=== PATIENT | male | born 1965 | race Caucasian/White ===

== ENCOUNTER → 2018-02-08 19:35 | Outpatient (CLI) | payer BC, SELFPAY ==
--- NOTE | 2018-02-08 19:48 | XR_ITS ---
XR cervical spine 5V Ordering Physician: Maureen Mac Patient Age: 52 years: Male HISTORY: ITS.REASON: RIGHT SHOULDER PAIN Right shoulder pain since August TECHNIQUE: Five-view cervical spine series COMPARISON :None FINDINGS Degenerative disc space narrowing, cervical spondylosis most evident C4 through C6. C3/4. Generous Facet hypertrophy on the right C4/5. Marked Disc space narrowing. Posterior hypertrophic ridging with near 2.5mm retro- listhesis of C4 on 5 vertebra also evident. Mild bilateral foraminal encroachment C5-C6 marked disc space narrowing. Just over 2 mm retrolisthesis C5 on C6 Cervical spondylosis/Posterior hypertrophic ridging with moderate bilateral foraminal encroachment. Moderate anterior marginal osteophytes C5/6 and C4/5 C6/7: Mild disc space narrowing. Mild posterior hypertrophic ridging. Mild foraminal encroachment. . C1-C2 relationships appear normal density intact. Nonspecific straightening prevertebral soft tissues normal Apices the lungs are clear IMPRESSION: ------ 1. Moderately pronounced Degenerative changes cervical spine . Degenerative disc space narrowing & cervical spondylosis most evident at C 4/5 & C5/6. Posterior hypertrophic ridging with Slight retrolisthesis at each of these levels.. C5-C6.: Bilateral foraminal encroachment most evident towards right foramen. C4/5: mild bilateral foraminal encroachment. Also moderate-generous facet hypertrophy the right C3/4
--- NOTE | 2018-02-08 19:48 | XR_ITS ---
XR shoulder RT min 2V Ordering Physician: Maureen Mac Patient Age: 52 years: Male HISTORY: ITS.REASON: RIGHT SHOULDER PAIN Right shoulder pain since August no injury TECHNIQUE: 3 view right shoulder COMPARISON :None FINDINGS Glenohumeral joint intact. Normal relationships. Humeral head and neck intact. Perhaps Scant sclerosis with subtle small degenerative cystic feature seen at the superior base of the humeral head. AC joint is intact. . Scapula unremarkable. IMPRESSION: ............... Right shoulder intact.
== END ==
PROVIDERS: Visit Provider Nurse Practitioner
DX: M25.511 Pain in right shoulder (principal)
CPT/HCPCS: 72050; 73030

== ENCOUNTER → 2018-02-15 15:48 | Outpatient (CLI) | payer BC, SELFPAY ==
--- NOTE | 2018-02-15 15:52 | MR_ITS ---
MR li con HISTORY: Generalized neck pain ITS.REASON: DDD CERVICAL, RADICULAR PAIN OF RIGHT UPPER EXTREMITY ORDERING PHYSICIAN: Caitlyn Lockett MD PATIENT AGE: 53 years Comparison: Plain film cervical spine 02/08/2018 12 TECHNIQUE: Standard multiplanar multiecho sequences are performed without contrast. 3-D MIP and myelographic images are also rendered and reviewed FINDINGS: There is normal curvature and alignment. The marrow signal is normal in each lumbar vertebrae. There is disc space narrowing at the C4-5, C5-6 and C6-7 levels. There is moderate anterior osteophytic spurring at the C4-5 and C5-6 levels. The spinal canal is normal in size throughout. There is a small broad-based disc protrusion at the C3-4 level causing minimal effacement of the CSF but not contacting the cervical cord. There is a larger broad-based disc protrusion C4-5 which effaces the CSF and mildly contours the cervical cord. There is bilateral neural foraminal narrowing at this level more prominent right side than left. There is a similar broad-based disc protrusion C5-6 which effaces the CSF and abuts but does not contour the cervical cord. There is bilateral neural foraminal narrowing at this level. There is a small broad-based disc protrusion C6-7 which only minimally effaces the CSF and does not contact the cord. The myelogram sequence is unremarkable. IMPRESSION: Multilevel disc protrusion most prominent at the C4-5 level where there is contouring of the cervical cord and bilateral neural foraminal narrowing but more prominent right side than left
== END ==
PROVIDERS: Family Provider Family Medicine; PCP Family Medicine; Visit Provider Family Medicine
DX: M50.30 Other cervical disc degeneration, unspecified cervical region (principal); M79.2 Neuralgia and neuritis, unspecified
CPT/HCPCS: 72141; 76376

== ENCOUNTER → 2018-03-14 12:44 | Outpatient (POV) | payer BC, SELFPAY | PROVIDERS: Family Provider Family Medicine; PCP Family Medicine; Visit Provider Neurological Surgery | DX: Z00.00 Encounter for general adult medical examination without abnormal findings (principal) ==

== ENCOUNTER → 2020-08-04 09:29 | Outpatient (CLI) | payer BC, SELFPAY ==
--- NOTE | 2020-08-04 09:34 | XR_ITS ---
PROCEDURE: XR SHOULDER RT MIN 2V CLINICAL INDICATION: RT SHOULDER PAIN COMPARISON: CR SHOULDCMRT XR shoulder RT min 2V from 02/08/2018 FINDINGS: No fracture or dislocation. No lytic or blastic change. There is normal mineralization. There are minimal osteoarthritic changes of the glenohumeral joint Other findings:None. IMPRESSION: Mild osteoarthritis of the glenohumeral joint Dictated by: Ye Shannon MD 08/04/2020 18:34 Ye Shannon MD in [facility] 08/04/2020 18:34
--- NOTE | 2020-08-04 09:34 | XR_ITS ---
PROCEDURE: XR CERVICAL SPINE 5V CLINICAL INDICATION: RT SHOULDER PAIN Chronic neck pain COMPARISON: CR [id number] XR cervical spine 5V from 02/08/2018 FINDINGS: No fracture or dislocation. No lytic or blastic change. There is normal mineralization. 2 mm anterolisthesis of C3 on C4. There is degenerative disc disease at C4-C5 C5-C6 and C6-C7 with endplate osteophytes at C4-C5 and C6 and C7. Foraminal narrowing is present on the left at C4-C5 C5-C6 and C6-C7 and on the right at C3-C4. The degenerative disc disease has somewhat progressed compared to 02/08/2018 IMPRESSION: Cervical spondylosis which has progressed from the previous exam Dictated by: Ye Shannon MD 08/04/2020 18:37 Ye Shannon MD in [facility] 08/04/2020 18:37
== END ==
PROVIDERS: PCP Nurse Practitioner; Visit Provider Nurse Practitioner
DX: M54.2 Cervicalgia (principal); M25.511 Pain in right shoulder
CPT/HCPCS: 72050; 73030

== ENCOUNTER 2020-08-13 07:52 | Emergency (ER) | payer OTHER, SELFPAY ==
[2020-08-13 07:53] VITALS: BP 132/73; PULSE 55; RESP 20; TEMP 36.8; O2SAT 98; BMI 27.8
--- NOTE | 2020-08-13 08:30 | [facility].EDWNDL ---
ED Disposition Clinical Impression: Laceration Disposition: Home, Self-Care Condition on Discharge: Good Instructions: DI for Laceration Repair Additional Instructions: Keep wound clean and dry. Keep covered for 3 days. Do not get wet for 3 days. After 3 days, lasting wet and first thing dry. No submerging for 2 weeks. Stitches out in 5 to 7 days. Return to the emergency department or PCP office if you notice thick drainage, redness to your hand, pain with movement of your fingers. Referrals: Cody Womack MD [Primary Care Provider] - - Critical Care Critical Care Time: No Attestation: On 08/13/20, the high probability of a clinically significant, sudden or life threatening deterioration of the following system(s) required my full and direct attention, intervention and personal management. The time I documented below is in addition to time spent performing reported procedures but includes the following listed in this critical care notation. Medical Decision Making - Portillo Inquiry Pt receiving controlled substance: No Portillo was queried for this patient: No Vital Signs: 08/13/20 07:53 Temperature 98.2 F Temperature Source Oral Pulse Rate [Left Radial] 55 L Respiratory Rate 20 Blood Pressure [Right Arm] 132/73 Blood Pressure Mean [Right Arm] 92 Blood Pressure Source [Right Arm] Automatic Cuff Blood Pressure Position [Right Arm] Sitting 02 Sat by Pulse Oximetry 98 Oxygen Delivery Method Room Air Orders (Tests/Meds): ED MEDICATIONS Discontinued Medications Generic Name Dose Route Start Last Admin Trade Name Freq PRN Reason Stop Dose Admin Tetanus/Reduced Diphtheria/Acell Pertussis 0.5 ml 08/13/20 08:24 08/13/20 08:40 Tet/Diphth/Pert-Adult 0.5ml Syringe IM 08/13/20 08:25 0.5 ml .ONCE ONE Administration Medical Decision Narrative: 55yo M evaluated for laceration to his dominant hand. Wound was cleaned with Hibiclens. Irrigated with normal saline. See procedure note for further details of repair. Patient tolerated procedure well. Started on Bactrim prophylactically. Tetanus shot updated in the emergency department. Counseled on wound management, when it was okay to shower, timeline for suture removal, parameters to return to the emergency department or PCP office. Patient voiced understanding and agreement with plan. Stable and appropriate for discharge home at this time. Wound/Laceration HPI - General Chief Complaint: Wound/Laceration Stated Complaint: rt hand lac, wc Time Seen by Provider: 08/13/20 08:30 Mode of Arrival: Ambulatory Limitations: No Limitations Description of Symptoms (Recalled from ER Triage Doc. by RN): c/o hand laceration. Pt states he was at work when a door came back and hit his hand. - History of Present Illness HPI narrative: 55yo M presents to the emergency department secondary to laceration to the right hand. Patient is right-hand dominant. Laceration is on the posterior aspect of the hand between the thumb and forefinger. Patient denies significant pain. Unknown last tetanus shot. Reports normal movement and sensation to the right hand. Injury occurred immediately prior to report to the emergency department. Place: home Patient tetanus UTD: No Context: accidental Associated symptoms: none - Related Data Allergies Allergy/AdvReac Type Severity Reaction Status Date / Time No Known Allergies Allergy Verified 08/13/20 08:24 [facility] History - Hepatitis A Screen Drug use history?: No High risk sexual behaviors?: No History of sexually transmitted infection?: No Currently employed?: No Childcare worker?: No Do you have indoor plumbing?: Yes Do you have electricity?: Yes Attestation statement:: This patient has been screened for Hepatitis A risk factors. I have reviewed the patient's past medical history: Yes Amputation: No - Social History Tobacco Type: cigarettes, e-cigarettes Family Hx:: No significant family his
[2020-08-13 09:08] VITALS: BP 117/80; PULSE 52; RESP 52; TEMP 36.8; O2SAT 98
== END 2020-08-13 09:27 | disposition home or self-care (01) ==
PROVIDERS: Emergency Provider Emergency Medicine; PCP Family Medicine
DX: S61.411A Laceration without foreign body of right hand, initial encounter (principal); W45.8XXA Other foreign body or object entering through skin, initial encounter; Y92.69 Other specified industrial and construction area as the place of occurrence of the external cause; Y99.0 Civilian activity done for income or pay; Z23 Encounter for immunization
CPT/HCPCS: 12001; 90715; 99282

== ENCOUNTER 2020-09-03 14:00 | Outpatient (RCR) | payer BC, SELFPAY | END 2020-09-03 14:05 | disposition home or self-care (01) | LOC: PT 14:00 | PROVIDERS: PCP Family Medicine; Visit Provider Nurse Practitioner | DX: M54.2 Cervicalgia; M25.511 Pain in right shoulder | CPT/HCPCS: 97010; 97014; 97033; 97035; 97110; 97140; 97163; G0283 ==

== ENCOUNTER → 2020-12-31 10:07 | Outpatient (CLI) | payer BC, SELFPAY ==
--- NOTE | 2020-12-31 10:09 | US_ITS ---
APPROVED REPORT Exam Type: Ankle to Brachial Index Parachute Crown Sewer: RT Jaime(R) Indications Claudication: Bilaterally Rest Pain: Bilaterally Current Smoker Bilateral claudication Risk Factors Current Smoker Findings RT MOISE=1.04 LT MOSIE=1.09 RT TBI=0.68 LT TBI=0.73 Normal pulses bilaterally Normal waveforms bilaterally Conclusion RT MOISE=1.04 LT MOISE=1.09 RT TBI=0.68 LT TBI=0.73 Normal pulses bilaterally Normal waveforms bilaterally Normal appearing resting noninvasive lower extremity arterial study. Electronically signed by : Ye Shannon MD 12/31/2020 16:24:25
== END ==
PROVIDERS: PCP Family Medicine; Visit Provider Family Medicine
DX: I70.213 Atherosclerosis of native arteries of extremities with intermittent claudication, bilateral legs (principal)
CPT/HCPCS: 93923

== ENCOUNTER → 2022-04-10 11:19 | Outpatient (CLI) | payer BC, SELFPAY ==
--- NOTE | 2022-04-10 11:38 | ECG_ITS ---
APPROVED REPORT Exam: Resting ECG HR:53 bpm ECG Measurements Heart Rate 53 AXES ID 158 P 71 QRSd 106 QRS 53 QT 413 T 49 QTc 395 Conclusion SINUS BRADYCARDIA BORDERLINE ECG UNCONFIRMED REPORT Electronically signed by : Lex Neumann MD 04/10/2022 22:34:28
[2022-04-10 19:20] LABS: Basophils # 0.1 K/mm3 (0-0.2); Basophils % 1.3 % (0.1-2.0); Eosinophils # 0.4 K/mm3 (0.0-0.4); Eosinophils % 4.4 % (0.1-12.0); Hematocrit 49.1 % (42.0-52.0); Hemoglobin 15.3 g/dL (14.1-18.0); Lymphocytes # 1.8 K/mm3 (0.7-4.5); Mean Corpuscular HGB Conc 31.2 g/dL (31.8-35.4); Mean Corpuscular Hemoglobin 29.9 pg (27.0-31.2); Mean Corpuscular Volume 95.9 fl (80-94); Mean Platelet Volume 9.9 fl (7.4-10.4); Monocytes # 0.6 K/mm3 (0.1-1.0); Monocytes % 6.6 % (1.7-9.3); Neutrophils # 5.5 K/mm3 (1.8-7.8); Neutrophils % 65.8 % (37.0-80.0); Platelet Count 397 K/mm3 (142-424); Red Blood Count 5.12 M/mm3 (4.60-6.20); Red Cell Distribution Width 13.5 % (11.5-17.5); White Blood Count 8.4 K/mm3 (4.8-10.8)
[2022-04-10 20:29] LABS: Anion Gap 14.5 mEq/L (5-15); Blood Urea Nitrogen 23 mg/dl (9-20); Calcium 9.1 mg/dl (8.4-10.2); Carbon Dioxide 25 mmol/L (22.0-30.0); Chloride 104 mmol/L (98-107); Estimated Glomerular Filt Rate 99 ml/min (>60); GFR (African American) 120 ML/MIN (>60); Glucose 95 mg/dl (74-100); Potassium 4.5 mmoL/L (3.5-5.1); Sodium 139 mmol/L (136-145)
== END ==
PROVIDERS: PCP Nurse Practitioner; Visit Provider Nurse Practitioner
DX: Z01.818 Encounter for other preprocedural examination (principal)
CPT/HCPCS: 80048; 85025; 93005

== ENCOUNTER 2024-11-12 18:48 | Outpatient (CLI) | payer BC, SELFPAY ==
--- OUTSIDE RECORDS SUMMARY | 2024-11-12 18:50 | XMS_ITS | Data Portability ---
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 Plan of Treatment Reminders Order Date Submit Date Provider Last Modified By Organization Details Last Modified Time Details Appointments None recorded. Lab None recorded. Referral None recorded. Procedures None recorded. Surgeries None recorded. Imaging XR, knee, 4 or more view [facility] [place], [address] , [place], [address], 7 16:20:44 XR, hip, unilatera l, 2 or 3 view [facility] [place], [address] , [place], [address], 7 16:20:24 Medication Orders Medrol (Adama) 4 mg tablets in a dose pack [facility], [address] [place], [address], 8 15:25:01 Patient TargetsNo targets recorded. Patient Instructions Encounter Date Encounter Id Patient Instructions Last Modified By Organization Details Last Modified Time 03/07/2017 [id number] patellar tendinitis (jumper's knee): exercises ddome Not available 03/07/2017 09:50:49 work status report* slaha Not available 03/07/2017 11:25:24 06/04/2017 [id number] knee arthritis: care instructions KAILA Not available 06/05/2017 15:18:09 hip arthritis: care instructions KAILA Not available 06/05/2017 15:17:19 osteoarthritis: care instructions KAILA Not available 06/05/2017 15:17:19 12/19/2017 [id number] knee arthritis: care instructions ddome Not available 12/20/2017 07:40:38 11/13/2018 [id number] knee arthritis: care instructions ddome Not available 11/18/2018 10:45:54 07/09/2019 [id number] knee arthritis: care instructions ddome Not available 07/09/2019 15:02:41 Reason for Referral None Reported. Results Created Date Observation Date Name Description Value Unit Range Abnormal Flag Note LastModifiedBy Organization Detail LastModifiedTime 06/04/20 17 06/04/2017 XR, hip, unila teral , 2 or 3 view Amirah pratt [facility] [address] [place] [address] Monica soto Name: TSEF soto : [phone] Monica soto 44 Orderi ng Provid er: OLGA VALDEZ EXAM DATE: 2016 EXAM: XR RT HIP UNILAT ERAL, 2 OR 3 VWS COMPAR JULISSA: None. HISTOR Y: Right hip pain FINDIN GS: The alignm ent is normal . Mild degene rative spurri ng involv ing the hips bilate rally. No fractu re or disloc ation. No intrao sseous lesion IMPRES PABLO: Mild bilate ral hip DJD Interp reted By: Jabari Leach MD Electr onical ly Signed By: Jabari Leach MD on 017 4:15 PM ddome [facility] [place] [address] , [place], [address], 06/04/2017 17:08:08 06/04/20 17 06/04/2017 [facility]R, knee, [facility] [place] [address] [place] [address] Monica soto Name: STEF soto : [phone] Monica soto 44 Orderi ng Provid er: OLGA VALDEZ EXAM DATE: 2016 EXAM: XR RT KNEE COMPLE TE, 4 OR MORE VWS COMPAR JULISSA: None. HISTOR Y: Right knee pain FINDIN GS: Normal alignm ent includ ing the patell ofemor al joint. Mild degene rative spurri ng bilate rally. No fractu re or intrao sseous lesion is noted. Contra latera l knee: Mild DJD IMPRES PABLO: 1. Mild bilate ral knee DJD, symmet charan Interp reted By: Jabari Leach MD Electr onical ly Signed By: Jabari Leach MD on 017 4:15 PM ddome [facility] [place] [address], [place], [address], 06/04/2017 17:08:08 Result Notes None recorded. Problems No Known Problems Procedures Surgical History Date Name Laterality Status Provider Name and Address Organization Details Recorded Time 9 Injection Joint/Bursa, Major completed OLGA VALDEZ MD [address] [place] [address], [phone], [facility] 07/09/2019 15:02:16 9 Injection Joint/Bursa, Major completed OLGA VALDEZ MD [address] [place] [address], [phone], [facility] 11/18/2018 10:45:10 8 Injection Joint/Bursa, Major completed OLGA VALDEZ MD [address] [place] [address] [place], [address], [facility] 12/19/2017 15:42:06 7 Euflexxa Injection completed OLGA VALDEZ MD [address] [place] [address] [place], [address], [facility] 01/25/2017 13:10:50 7 Euflexxa Injection completed OLGA VALDEZ MD [address] [place] [address] [place], [address], [facility] 01/17/2017 15:49:05 7 Euflexxa Injection completed OLGA VALDEZ MD [address] [place], [address], [facility] 01/10/2017 16:04:27 7 Injection Joint/Bursa, Major completed OLGA VALDEZ MD [address] [place] [address], [phone], [facility] 11/29/2016 11:27:14 7 Injection Joint/Bursa, Major, w/o US completed ROBBIE BUCIO MD [address] [place] [address], [phone], [facility] 09/05/2016 14:30:18 Imaging Results Imaging Date Name Status LastModified by Organiz ation Details LastModified Time 06/04/2017 XR, hip, unilateral , 2 or 3 view completed [facility] [place] [address] , [place], [address], 06/04/2017 17:08:08 06/04/2017 XR, knee, 4 or more view completed [facility] [place] [address] , [place], [address], 06/04/2017 17:08:08 Procedure Notes None recorded. Medical Equipment None Reported. Allergies No known drug allergies Medications Name Sig Start Date Stop Date Status Note LastModified by Organization Details LastModified Time prednisone 10 mg tablet Take 60 mg by oral route in the morning for 14 days. 06/04 completed Not Available Not Available Not Available Depo-Medrol 40 mg/mL suspension for injection Take 2 mL by injection route. 06/04 completed Not Available Not Available Not Available nabumetone 750 mg tablet Take 1 tablet twice a day by oral route. active Not Available Not Available No t Available benzonatate 200 mg capsule 09/05 completed Not Available Not Available Not Available Medrol (Adama) 4 mg tablets in a dose pack Take 1 dose pk by oral route. 12/19 completed Not Available Not Available Not Available paroxetine 30 mg tablet Take 1 tablet every day by oral route. 06/04 completed Not Available Not Available Not Available diclofenac sodium 75 mg tablet,jed yed release Take 1 tablet twice a day by oral route for 30 days. 06/04 completed Not Available Not Available Not Available etodolac 400 mg tablet 11/13 completed Not Available Not Available Not Available cefdinir 300 mg capsule 09/05 completed Not Available Not Available Not Available Ventolin HFA 90 mcg/actuati on aerosol inhaler 09/05 completed Not Available Not Available Not Available Vitals Date Recorded Body height Body mass index (BMI) Body weight Systolic blood pressure Diastolic blood pressure Provider Name and Address Organization Details Last Updated DateTime 03/07/2017 182.88 cm 27.8 kg/m2 60165.44 g 112 mm[Hg] 64 mm[Hg] [facility] 7 09:36:12 Date Recorded Body height Body mass index (BMI) Body weight Systolic blood pressure Diastolic blood pressure Provider Name and Address Organization Details Last Updated DateTime 06/04/2017 182.88 cm 28.2 kg/m2 24240.93 g 120 mm[Hg] 82 mm[Hg] Elsie Crowley [facility] 7 15:35:21 Date Recorded Pain severity - 0-10 verbal numeric rating [Score] - Reported Provider Name and Address Organization Details Last Updated DateTime 06/04/2017 6 Not Available [facility] 8 10:37:50 Date Recorded Body height Body mass index (BMI) Body weight Systolic blood pressure Diastolic blood pressure Provider Name and Address Organization Details Last Updated DateTime 12/19/2017 182.88 cm 28.2 kg/m2 94188.21 g 120 mm[Hg] 74 mm[Hg] [facility] 8 15:26:37 Date Recorded Body height Body mass index (BMI) Body weight Systolic blood pressure Diastolic blood pressure Provider Name and Address Organization Details Last Updated DateTime 11/13/2018 182.88 cm 28.2 kg/m2 01796.21 g 128 mm[Hg] 82 mm[Hg] [facility] 9 16:11:54 Date Recorded Body height Body mass index (BMI) Body weight Systolic blood pressure Diastolic blood pressure Provider Name and Address Organization Details Last Updated DateTime 07/09/2019 182.88 cm 28.5 kg/m2 11341.4 g 116 mm[Hg] 68 mm[Hg] Ephraim Estrada [facility] 9 14:35:31 Social History Question Answer Notes LastModified by Organizat ion Details LastModified Time Tobacco Smoking Status Current Every Day Smoker [email or web address] 09/05/2016 13:55:22 What Is Your Level Of Alcohol Consumption? Occasional [email or web address] Information not available 11/27/2016 What Is Your Level Of Caffeine Consumption? Moderate [email or web address] Information not available 06/04/2017 Rate The Severity Of Your Symptoms: (0-10 With 0=none And 10=worst Possible) 6 [email or web address] Information not available 06/04/2017 When Are Your Symptoms The Worst? Night Day Neither Day [email or web address] Information not available 06/04/2017 How Long Have You Had These Symptoms? Knee 07/14, Hip 1 Month [email or web address] Information not available 06/04/2017 Will This Be Filed As Workers' Compensation? No [email or web address] Information not available 06/04/2017 What Was The Date Of Your Most Recent Tobacco Screening? 11/13/2018 Information not available 09/16/2019 How Much Tobacco Do You Smoke? 1 PPD [email or web address] Information not available 09/05/2016 Work Related Injury? No [email or web address] Information not available 06/04/2017 Sex: Unknown Functional Status None recorded. Mental Status None recorded. Family History Relationship Description Onset Age of this Age Resolved Age Notes LastModified by Organization Details LastModified Time Father No current problems or disability [email or web address] Not available 09/05 13:55:14 Mother No current problems or disability [email or web address] Not available 09/05 13:55:14 Medical History Condition Response Coronary Artery Disease N Gout N Other N Anxiety/Depression N Thyroid Disease N Kidney Stones N Hernia N Emphysema N COPD N Glaucoma N Pneumonia N Anesthesia Complications N Gastrointestinal Disease N Arthritis Y Serious Illness or Injuries N Blood Clot N Acid Reflux (GERD) N Cancer N Stroke N Alcohol Overuse/Alcohol Abuse N High Cholesterol N Liver Disease N Rheumatoid Arthritis N Kidney Disease N Allergies/Hayfever N Chronic Obstructive Pulmonary Disease N Heart Conditions N Migraines N Skin Problems N Immune System Disorder N Heart Attack (MD) N Mental Illness N Neurological Problems N Diabetes N Anticoagulation therapy N Rheumatic Fever N Bleeding Disorder N Seizures/Epilepsy N Tuberculosis N Genetic Disorder N AIDS/HIV N Asthma N Peripheral Vascular Disease N Sleep Apnea N Included as Review of Systems N Heart Disease N Hypertension N Osteoporosis N Past Encounters Encounter ID Performer Location Encounter Start Date Encounter Closed Date Diagnosis/Indication Diagnosis SNOMED-CT Code Diagnosis ICD10 Code Diagnosis Note [id number] ROBBIE BUCIO MD [place] [address] [address] 09/05/2016 13:40:34 09/05/2016 14:38:25 Knee joint effusion 612951793 M25.461 Right knee, with underlying OA.Aspirat ed 8 ml of synovial fluid and fluid send for analysis .Injected with Depo medrol 80 mg. Rheumatoid factor detected 678481831 R76.0 seems likely a false positive test .no synovitis or dactylitis noted .right knee effusions eems more secondary to OA along with possible chronic degenerati ve medial meniscal tear.I have obtained an anti CCP abs along with ESR. [id number] ROBBIE BUCIO MD [facility]HEUMATOL [facility] [address] [address] 11/16/2016 13:36:15 11/16/2016 14:41:45 Knee joint effusion 515554637 M25.461 Right knee, recurrent .Aspirated 2 months ago , with features of DJD.Negati ve crystal exam.The swelling is back and limited ROM.Tender MJL with positive popliteal cyst.Needs MRI , likely meniscal tear with associated DJD .For now, take Prednisone at 60 mg poqd with taper over the next 14 days .see me on the day of MRI exam. [id number] ROBBIE BUCIO MD RHEUMATOL OG[address] [address] 11/27/2016 09:15:37 11/27/2016 10:37:27 Pain in right knee 4299590397 70803 M25.561 Recurrent effusion and pains with MRI examinatio n positive for tear of the mid portion of the medial meniscus with probable extension into the posterior horn. There is a tear along the free edge of the mid portion of the lateral meniscus. Plus a large joint effusion and mild degenerati ve changes in the right knee. I want him to have orthopedic evaluation for further management .He is finishing off the oral steroid pack. [id number] OLGA VALDEZ MD [facility] [place] [address] [place] [address] 11/29/2016 09:18:22 11/29/2016 11:35:27 Osteoarthritis of knee 510197734 M17.11 Mr Tee has early OA of the knee. His x rays appear relatively benign but his MRI shows much more advanced arthropath y of the kneeI recommend conservati ve treatment for the knee OA with PT corticoste roid injection and diclofenac If he has persistent pain despite these treatments it would be reasonable to perform viscosuppl ementation with euflexxaAr throscopic treatment of the knee OA would not likely be beneficial If he fails non operative treatment then he may need uni compartmen t arthroplas ty versus high tibial osteotomy [id number] OLGA VALDEZ MD [facility] [place] [address] [place] [address] 12/27/2016 14:33:19 12/27/2016 15:37:56 Osteoarthritis of knee 296383822 M17.11 Mr Tee has early OA of the knee. His x rays appear relatively benign but his MRI shows much more advanced arthropath y of the kneeI recommend conservati ve treatment for the knee OA with PT corticoste roid injection and continuati on of etodolac as the diclofenac cause gi distressHe has persistent pain despite these treatments and I recommend we preauthori ze viscosuppl ementation with euflexxaAr throscopic treatment of the knee OA would not likely be beneficial If he fails non operative treatment then he may need uni compartmen t arthroplas ty versus high tibial osteotomy [id number] OLGA VALDEZ MD [facility] [place] [address] [place] [address] 01/10/2017 15:27:43 01/11/2017 10:44:30 Osteoarthritis of knee 857595528 M17.11 Mr Tee has early OA of the knee. His x rays appear relatively benign but his MRI shows much more advanced arthropath y of the kneeI recommend conservati ve treatment for the knee with viscosuppl ementation with euflexxaHe was given the first of 3 injections right kneeIf he fails non operative treatment then he may need uni compartmen t arthroplas ty versus high tibial osteotomy [id number] OLGA VALDEZ MD [facility] [address] [place] [address] 01/17/2017 15:19:59 01/17/2017 16:21:37 Osteoarthritis of knee 392884601 M17.11 Mr Tee has early OA of the knee. His x rays appear relatively benign but his MRI shows much more advanced arthropath y of the kneeI recommend conservati ve treatment for the knee with viscosuppl ementation with euflexxaHe was given the second of 3 injections right kneeIf he fails non operative treatment then he may need uni compartmen t arthroplas ty versus high tibial osteotomy [id number] [facility] [address] [place] [address] 01/24/2017 15:26:43 01/25/2017 17:08:29 Osteoarthritis of knee [id number] M17.11 Mr Tee has early OA of the knee. His x rays appear relatively benign but his MRI shows much more advanced arthropath y of the kneeI recommend conservati ve treatment for the knee with viscosuppl ementation with euflexxaHe was given the second of 3 injections right kneeIf he fails non operative treatment then he may need uni compartmen t arthroplas ty versus high tibial osteotomy [id number] OLGA VALDEZ [facility] [address] [place] [address] 03/07/2017 08:46:37 03/07/2017 09:53:14 Patellar tendonitis [id number] M76.51 Acute patella tendinitis I recommend a brief course of immobiliza tion with knee immobilize r and off work for one weekI asked him to continue with the anti inflammato ry medication as well. [id number] [facility] [address] [place] [address] 06/04/2017 14:49:58 06/13/2017 07:35:04 Osteoarthritis of hip 250844121 M16.11 Mr Tee is now more symptomati c with the right hip than the kneeI recommend continuati on of hip abductor strengthen ing and a short course of Medrol to alleve his hip pain. Osteoarthr itis of knee 516633355 M17.11 Mr Tee has early OA of the knee. His x rays appear relatively benign but his MRI shows much more advanced arthropath y of the kneeHe had follow up xrays today which did not show advancing medial compartmen t erosion. [id number] OLGA VALDEZ MD [facility] [address] [place] [address] 12/19/2017 15:02:34 12/20/2017 08:58:18 Osteoarthritis of knee 829133554 M17.11 Mr Tee has early OA of the knee. He has had recent worsening symptoms due to increased weight bearing activities this spring. He was provided corticoste roid injection for symptomati c relief and I asked him to continue the Lodine.He had follow up xrays today which did not show advancing medial compartmen t erosion. [id number] [facility] [address] [address] 11/13/2018 15:57:01 11/19/2018 15:35:42 Osteoarthritis of knee 582437257 M17.11 Mr Tee has early OA of the knee. He has had recent worsening symptoms due to increased weight bearing activities this spring. He was provided corticoste roid injection of the left knee as described above for symptomati c relief and I asked him to continue the relafen. [id number] [facility] [address] [address] 07/09/2019 14:29:10 07/15/2019 12:16:59 Osteoarthritis of knee 153799471 M17.11 Mr Tee has early OA of the knee. He has had recent worsening symptoms. He was provided corticoste roid injection of the left knee as described above for symptomati c relief and I asked him to continue the relafen. Health Concerns Section Related Observation LastModified by Organization Detai ls LastModified Time None Recorded Concern Status LastModified by Organization Details LastModified Time None Recorded Advance Directives Directive None Recorded Payers Encounter Date Sequence Insurance Name Policy Number Policy Muse Covered Member ID Muse Member ID Guarantor Name 03/07/2017 1 [place] [id number] Caroline Tee [id number] Sandip Tee 06/04/2017 1 [place] [id number] Caroline Tee [id number] Sandip Tee 12/19/2017 1 [place] [id number] Caroline Tee [id number] Sandip Tee 11/13/2018 1 [place] [id number] Caroline Tee [id number] Sandip Tee 07/09/2019 1 [place] [id number] Caroline Tee [id number] Sandip Tee Notes Date Note Type Note Provider Name and Address Organization Details Recorded Time 7 text/html Mr Turner presents today for evaluation of painful left knee. He denies any specific cause for his current knee pain. He points to the anterior knee as the area of discomfort. He denies locking, catching, giving away, or significant swelling. He increased pain with increased weight bearing activities. He has pain with prolonged sitting and when standing from sitting. He has been taking Lodine 400 mg daily without adverse effect and this helps him some. He previously was treated with Euflexxa and that seems to have helped the pain at the time he received it. The pain at that time was more along the medial knee and now his pain is more over the knee cap. He has been limping some with walking. He states he has had his current pain for about a week now. OLGA VALDEZ MD [address] [place] [address], [address], [facility] 03/10/2017 15:33:46 7 text/html Mr Tee is a 52 year old gentleman who presents with complaints of painful right hip and knee. He has increased pain with increased weight bearing activities in these areas. He denies prior history of trauma in recent or remote past. He has had persistent pain in the knee since June 2016 and in the past month has had onset of right hip pain. He has had prior treatment for the knee pain with viscosupplementation which did provide some relief of his knee pain. He has taken lodine with some relief of knee pain as well. He denies back pain and denies paresthesia or radicular symptoms right lower extremity. OLGA VALDEZ MD [address] [place] [address], [phone], [facility] 06/12/2017 20:57:15 8 text/html Mr Tee is a 52 year old gentleman who presents with complaints of painful right knee. He has increased pain with increased weight bearing activities in these areas. He denies prior history of trauma in recent or remote past. He has had persistent pain in the knee since June 2016 and in the past 6 weeks he has had progressive knee pain.. He has had prior treatment for the knee pain with viscosupplementation which did provide some relief of his knee pain. He continues to use lodine with some relief of knee pain as well. He denies back pain and denies paresthesia or radicular symptoms right lower extremity. OLGA VALDEZ MD [address] [place] [address], [phone], [facility] 12/20/2017 07:40:59 9 text/html Mr Tee is a 53 year old gentleman who presents with complaints of painful left knee for the past 2 weeks. He has increased pain with increased weight bearing activities in these areas. He denies prior history of trauma in recent or remote past. He has had prior treatment for the knee pain with viscosupplementation which did provide some relief of his knee pain. He continues to use relafen with some relief of knee pain as well. He denies back pain and denies paresthesia or radicular symptoms right lower extremity. OLGA VALDEZ MD [address] [place] [address], [phone], [facility] 11/18/2018 10:46:22 9 text/html Mr Tee is a 53 year old gentleman who presents with complaints of recurrent pain in the left knee for the past 3 weeks. He has increased left knee pain with increased weight bearing activities in these areas. He denies prior history of trauma in recent or remote past. He has had prior treatment for the right knee pain with viscosupplementation which did provide some relief of his knee pain. He continues to use relafen with some relief of knee pain as well. He denies back pain and denies paresthesia or radicular symptoms right lower extremity. He had many months of relief following corticosteroid injection left knee He complains of achy pain at night time. OLGA VALDEZ MD [address] [place] [address], [place], [address], [facility] 07/30/2019 18:29:11
[2024-11-12 19:00] LABS: Basophils # 0.1 K/mm3 (0-0.2); Basophils % 0.6 % (0.1-2.0); Eosinophils # 0.2 K/mm3 (0.0-0.4); Eosinophils % 1.4 % (0.1-12.0); Hematocrit 46.2 % (42.0-52.0); Hemoglobin 15.1 g/dL (14.1-18.0); Lymphocytes # 3.8 K/mm3 (0.7-4.5); Lymphocytes % 26.9 % (10-50); Mean Corpuscular HGB Conc 32.7 g/dL (31.8-35.4); Mean Corpuscular Hemoglobin 30.6 pg (27.0-31.2); Mean Corpuscular Volume 93.5 fl (80-94); Mean Platelet Volume 11.5 fl (7.4-10.4); Monocytes # 1.1 K/mm3 (0.1-1.0); Monocytes % 7.5 % (1.7-9.3); Neutrophils # 8.9 K/mm3 (1.8-7.8); Neutrophils % 62.9 % (37.0-80.0); Nucleated Red Blood Cells # 0 10^3/uL; Nucleated Red Blood Cells % 0 %; Platelet Count 354 K/mm3 (142-424); Red Blood Count 4.94 M/mm3 (4.60-6.20); Red Cell Distribution Width 14.6 % (11.5-17.5); Red Cell Distribution Width-SD 50.2 fL; White Blood Count 14.1 K/mm3 (4.8-10.8)
[2024-11-12 19:38] LABS: Alanine Aminotransferase 25 U/L (12-78); Albumin Level 3.7 g/dl (3.5-5.0); Albumin/Globulin Ratio 1.2 (1.1-1.8); Alkaline Phosphatase 77 U/L (38-126); Anion Gap 9.1 mEq/L (5-15); Aspartate Amino Transferase 24 U/L (17-59); Bilirubin,Total 0.4 mg/dl (0.2-1.3); Blood Urea Nitrogen 20 mg/dl (9-20); Calcium 8.9 mg/dl (8.4-10.2); Carbon Dioxide 28 mmol/L (22.0-30.0); Chloride 105 mmol/L (98-107); Chol/HDL Ratio 4.2 (1-3.5); Cholesterol 177 mg/dl (140-200); Estimated Glomerular Filt Rate 86 ml/min (>60); GFR (African American) 104 ML/MIN (>60); Glucose 89 mg/dl (74-100); HDL Cholesterol 42 mg/dl (40-60); Potassium 4.1 mmoL/L (3.5-5.1); Sodium 138 mmol/L (136-145); Total Protein,Serum 6.7 g/dl (6.3-8.2); Triglycerides 148 mg/dl (30-150); VLDL Cholesterol 30 mg/dL (0-40)
[2024-11-12 19:44] LABS: Hemoglobin A1C 5.6 % (4.0-6.0)
[2024-11-12 19:49] LABS: Direct LDL Cholesterol 96.46 mg/dL (100-129)
[2024-11-12 20:09] LABS: Prostate Specific Ag Screen 0.9 ng/ml (0.0-4.0); Thyroid Stimulating Hormone 2.59 uIU/mL (0.465-4.68)
== END 2024-11-12 23:59 | disposition home or self-care (01) ==
LOC: LAB.DROPOF 18:49
PROVIDERS: PCP Nurse Practitioner; Visit Provider Nurse Practitioner
DX: M54.2 Cervicalgia (principal); M62.830 Muscle spasm of back; Z87.891 Personal history of nicotine dependence; Z13.1 Encounter for screening for diabetes mellitus; Z13.220 Encounter for screening for lipoid disorders; Z13.29 Encounter for screening for other suspected endocrine disorder; Z12.5 Encounter for screening for malignant neoplasm of prostate
CPT/HCPCS: 80053; 80061; 83036; 84443; 85025; G0103